=== PATIENT | female | born 1985 ===

== ENCOUNTER 2018-02-20 16:07 | Emergency (ER) | payer MEDICAID ==
[2018-02-20 16:07] VITALS: BMI 33.3
[2018-02-20] MEDS ORDERED: Sodium Chloride 0.9% 1,000 ML IV STA (17:08)
--- NOTE | 2018-02-20 17:12 | ED PDOC ---
Arrival/HPI - General Chief Complaint: Female Genitourinary Time Seen by Provider: 02/20/18 17:07 Historian: Patient - History of Present Illness Narrative History of Present Illness (Text): 02/20/18 17:08 32yr old female , Presents today with vaginal bleeding. Patient states she' s been having brown vaginal discharge for the past 3 weeks but today she developed bright red blood per vagina. Patient states she has only gone through 2 pads since this morning. Patient states today she has developed some lower abdominal cramping and low back pain. She denies urinary symptoms. Denies chest pain or shortness of breath. Denies fevers or chills. Patient states she has irregular periods and her last known menstrual cycle was in September. Patient states she has not had an ultrasound to confirm . No nausea or vomiting. No other complaints Time/Duration: Other (this morning) Symptom Onset: Gradual Quality: Cramping Severity Level: 7 Past Medical History - Provider Review Nursing Documentation Reviewed: Yes - Travel History Have you recently traveled outside [place] w/in the past 3 mons?: No - Infectious Disease Hx of Infectious Diseases: None - Tetanus Immunization Tetanus Immunization: Unknown - Past Medical History Past Medical History: No Previous - Psychiatric Hx Depression: No Hx Emotional Abuse: No Hx Physical Abuse: No Hx Substance Use: No - Past Surgical History Past Surgical History: No Previous - Surgical History Hx Section: Yes - Suicidal Assessment Feels Threatened In Home Enviroment: No Family/Social History - Physician Review Nursing Documentation Reviewed: Yes Family/Social History: Unknown Family HX Smoking Status: Former Smoker Hx Alcohol Use: No Hx Substance Use: No Hx Substance Use Treatment: No Allergies/Home Meds Allergies/Adverse Reactions: Allergies ciprofloxacin [From Cipro] Allergy (Verified 02/20/18 16:52) SWELLING Review of Systems - Review of Systems Constitutional: absent: Fatigue, Fevers Respiratory: absent: SOB, Cough Cardiovascular: absent: Chest Pain, Palpitations Gastrointestinal: Abdominal Pain. absent: Constipation, Diarrhea, Nausea, Vomiting Genitourinary Female: Vaginal Bleeding. absent: Dysuria, Frequency, Hematuria Musculoskeletal: Back Pain. absent: Arthralgias, Neck Pain Skin: absent: Rash, Pruritis Neurological: absent: Headache, Dizziness Psychiatric: absent: Anxiety, Depression Physical Exam Vital Signs Reviewed: Yes Vital Signs Temp Pulse Resp BP Pulse Ox 02/20/18 16:07 98.6 F 94 H 18 124/68 99 Temperature: Afebrile Blood Pressure: Normal Pulse: Regular Respiratory Rate: Normal Appearance: Positive for: Well-Appearing, Non-Toxic, Comfortable Pain Distress: None Mental Status: Positive for: Alert and Oriented X 3 - Systems Exam Head: Present: Atraumatic Mouth: Present: Moist Mucous Membranes Neck: Present: Normal Range of Motion Cardiovascular: Present: Regular Rate and Rhythm, Normal S1, S2. No: Murmurs Abdomen: No: Tenderness (+ lower pelvic tenderness and suprapubic tenderness), Distention, Peritoneal Signs, Rebound, Guarding Genitourinary/Pelvic Exam: Present: Normal External Genitalia, Vaginal Bleeding (+ minimal amount of vaginal bleeding noted; ), Cervical os Closed, Other ( chaparoned by Eveline MCCAIN). No: Vaginal Discharge, Adenexal Tenderness Back: Present: Normal Inspection. No: CVA Tenderness, Midline Tenderness, Paraspinal Tenderness Upper Extremity: Present: Normal Inspection Lower Extremity: Present: Normal Inspection Neurological: Present: GCS=15, Speech Normal Skin: Present: Warm, Dry, Normal Color. No: Rashes Psychiatric: Present: Alert, Oriented x 3 Medical Decision Making ED Course and Treatment: 02/20/18 17:11 Patient is nontoxic well appearing in no distress. vital signs are stable. CBC: wbc; 15.8 CMP: wnl Beta hC TYPE AND SCREEN: o+ Urinalysis: + blood, + leukocytes, 2-5wbcs Ultrasound: FINDINGS: Fetus: There is a single living intrauterine gestation in variable presentation. There is a heart rate of 158 beats per minute. Placenta: Placenta is anterior. There is no previa.. Amniotic fluid: Amnionic fluid volume appears normal.Amniotic fluid index measures 8.97 cm Anatomy: Early gestational age limits evaluation of anatomy BIOMETRICS Gestational age: 16 weeks 0 days DONALD: 08/07/18 EFW: 142 g BPD: 3.19 cm, 16 weeks 0 days HC: 12.14 cm, 16 weeks 0 days AC: 9.89 cm, 16 weeks 0 days FL: 2.04 cm, 16 weeks 1 day MATERNAL: Cervix: Cervix measures approximately 3 cm in length Ovaries: Ovaries are unremarkable. There is intraovarian blood flow. There is a corpus luteum on the right. IMPRESSION: 16 weeks 0 day single living intrauterine gestation, estimated date of delivery 08/07/18, no previa Discussed all the results the patient. pt was advised to continue vitamins. Pt states she is currently taking vitamins. pt was advised to take tylenol for pain and macrobid for UTI. advised f/u with the tree doctor within the next 2 days. advised immediate return if symptoms worsen,persist or if new symptoms develop; continued pain, heavy bleeding, dizziness or weakness or if any other concerning symptoms develop. Patient verbalizes understanding of discharge instructions and need for immediate followup. all aspects of this case were discussed the attending of record. Impression: Threatened , UTI Tylenol every 4 hours as needed for pain Increase fluids Macrobid; 1 tablet twice daily x 10 days. Followup with the needle straightener within the next 2 days Return immediately if symptoms worsen persist or if new symptoms develop: High fevers, heavy bleeding, severe abdominal pain, vomiting, diarrhea, dizziness or weakness or any other concerning symptoms develop. - Lab Interpretations Lab Results: 02/20/18 17:40 02/20/18 17:40 Lab Results 02/20/18 17:40: WBC 15.8 H D, RBC 3.96, Hgb 11.3 L, Hct 33.2 L, MCV 83.8, MCH 28.5, MCHC 34.0, RDW 12.9, Plt Count 346, MPV 9.7, Gran % 79.7 H, Lymph % (Auto ) 13.7 L, [place] % (Auto) 5.6, Eos % (Auto) 0.9 L, Baso % (Auto) 0.1, Gran # 12.58 H, Lymph # (Auto) 2.2, [place] # (Auto) 0.9 H, Eos # (Auto) 0.2, Baso # (Auto ) 0.02 02/20/18 17:40: Beta HCG, Quant 66846.00 H 02/20/18 17:40: Sodium 139, Potassium 4.0, Chloride 106, Carbon Dioxide 20 L, Anion Gap 17, BUN 8, Creatinine 0.4 L, Est GFR ( Amer) > 60, Est GFR (Non -Af Amer) > 60, Random Glucose 86, Calcium 9.2, Total Bilirubin 0.3, AST 18, ALT 16, Alkaline Phosphatase 73, Total Protein 7.4, Albumin 4.1, Globulin 3.3, Albumin/Globulin Ratio 1.2 02/20/18 17:29: Urine Color Yellow, Urine Appearance Turbid, Urine pH 6.0, Ur Specific [place] 1.025, Urine Protein Trace H, Urine Glucose (UA) Negative, Urine Ketones Trace H, Urine Blood Large H, Urine Nitrate Negative, Urine Bilirubin Negative, Urine Urobilinogen 0.2, Ur Leukocyte Esterase Small H, Urine RBC 10 - 15, Urine WBC 2 - 5, Ur Epithelial Cells 1 - 3, Calcium Oxalate Crystal Few, Urine Bacteria Few 02/20/18 17:10: Blood Type O POSITIVE, Antibody Screen Negative, BBK History Checked No verified bt - RAD Interpretation Radiology Orders: 02/20/18 17:31 AGE [US] Stat - Medication Orders Current Medication Orders: Discontinued Medications Sodium Chloride (Sodium Chloride 0.9%) 1,000 mls @ 999 mls/hr IV .Q1H1M STA Stop: 02/20/18 18:08 Last Admin: 02/20/18 17:35 Dose: 999 mls/hr eMAR Start Stop Document 02/20/18 17:35 SF (Rec: 02/20/18 17:35 [id number]) Intravenous Solution Start Date 02/20/18 Start Time 17:35 End Date 02/20/18 End time 18:36 Total Infusion Time 61 Disposition/Present on Arrival - Present on Arrival Any Indicators Present on Arrival: No History of DVT/PE: No History of Uncontrolled Diabetes: No Urinary Catheter: No History of Decub. Ulcer: No History Surgical Site Infection Following: None - Disposition Have Diagnosis and Disposition been Completed?: Yes Diagnosis: Threatened , Urinary tract infection Disposition: HOME/ ROUTINE Disposition Time: 19:26 Patient Plan: Discharge Condition: GOOD Discharge Instructions (ExitCare): Threatened Miscarriage (DC), Urinary Tract Infections in Adults Additional Instructions: Tylenol every 4 hours as needed for pain Increase fluids Macrobid; 1 tablet twice daily x 10 days. Followup with the needle straightener within the next 2 days Return immediately if symptoms worsen persist or if new symptoms develop: High fevers, heavy bleeding, severe abdominal pain, vomiting, diarrhea, dizziness or weakness or any other concerning symptoms develop. Prescriptions: Nitrofurantoin Macrocrystals [Macrobid] 100 mg PO BID #20 cap Referrals: Trisha Villafuerte MD [Primary Care Provider] - Follow up with primary Fabi,Lidia A, MD [Staff Provider] - Follow up with primary Luis Malloy MD [Staff Provider] - Follow up with primary Ramy Lovett DO [Staff Provider] - Follow up with [facility] [Outside] - Follow up with primary Forms: [employer] ([place]uan), WORK NOTE
[2018-02-20 17:38] LABS: URINE BILIRUBIN NEGATIVE (NEGATIVE); URINE BLOOD LARGE (NEGATIVE); URINE GLUCOSE (UA) NEGATIVE (NEGATIVE); URINE LEUKOCYTE ESTERASE SMALL Leu/uL (NEGATIVE); URINE PROTEIN TRACE mg/dL (<30 mg/dL); URINE UROBILINOGEN 0.2 E.U./dL (<1 E.U./dL)
[2018-02-20 17:39] LABS: URINE APPEARANCE TURBID (CLEAR); URINE COLOR YELLOW (YELLOW)
[2018-02-20 17:43] LABS: URINE BACTERIA FEW (NEG); URINE CALCIUM OXALATE CRYSTALS FEW /hpf
[2018-02-20 17:47] LABS: BASO # 0.02 K/mm3 (0.0-2.0); BASO % 0.1 % (0.0-3.0); EOS # 0.2 (0.0-0.7); EOS % 0.9 % (1.5-5.0); GRAN # 12.58 (1.4-6.5); GRAN % 79.7 % (50.0-68.0); HEMOGLOBIN 11.3 g/dL (12.0-16.0); LYMPH # 2.2 (1.2-3.4); LYMPH % 13.7 % (22.0-35.0); MEAN CELL VOLUME 83.8 fl (80.0-105.0); MEAN CORPUSCULAR HEMOGLOBIN 28.5 pg (25.0-35.0); MEAN PLATELET VOLUME 9.7 fl (7.0-11.0); MONO # 0.9 (0.1-0.6); MONO % 5.6 % (1.0-6.0); RBC 3.96 10^6/uL (3.5-6.1); RED CELL DISTRIBUTION WIDTH 12.9 % (11.5-14.5); WHITE BLOOD COUNT 15.8 10^3/ul (4.5-11.0)
[2018-02-20 17:56] LABS: ALB/GLOB RATIO 1.2 (1.1-1.8); ALBUMIN 4.1 g/dL (3.0-4.8); ALT/SGPT 16 U/L (7-56); AST/SGOT 18 U/L (14-36); BLOOD UREA NITROGEN 8 mg/dL (7-21); CALCIUM 9.2 mg/dL (8.4-10.5); GFR NON-AFRICAN AMERICAN > 60
--- NOTE | 2018-02-20 18:58 | US ---
EXAM: US After First Trimester, Transabdominal EXAM DATE/TIME: 02/20/2018 5:31 PM CLINICAL HISTORY: 32 years old, female; Pain; complicated by abdominal or pelvic pain; Lower; Second trimester; LMP unknown; ; Additional info: Pain/bleeding - ; spotting started today TECHNIQUE: Real-time transabdominal obstetrical ultrasound of the maternal pelvis and a second or third trimester with image documentation. COMPARISON: There are no prior studies for comparison. FINDINGS: Fetus: There is a single living intrauterine gestation in variable presentation. There is a heart rate of 158 beats per minute. Placenta: Placenta is anterior. There is no previa.. Amniotic fluid: Amnionic fluid volume appears normal.Amniotic fluid index measures 8.97 cm Anatomy: Early gestational age limits evaluation of anatomy BIOMETRICS Gestational age: 16 weeks 0 days DONALD: 08/07/18 EFW: 142 g BPD: 3.19 cm, 16 weeks 0 days HC: 12.14 cm, 16 weeks 0 days AC: 9.89 cm, 16 weeks 0 days FL: 2.04 cm, 16 weeks 1 day MATERNAL: Cervix: Cervix measures approximately 3 cm in length Ovaries: Ovaries are unremarkable. There is intraovarian blood flow. There is a corpus luteum on the right. IMPRESSION: 16 weeks 0 day single living intrauterine gestation, estimated date of delivery 08/07/18, no previa
[2018-02-20 19:39] VITALS: RESP 17; O2SAT 100
[2018-02-20 19:46] VITALS: BP 124/77; PULSE 84
[2018-02-20 19:58] VITALS: TEMP 98.2
== END 2018-02-20 19:58 | disposition home or self-care (01) ==
LOC: ED 16:07
DX: O20.0 Threatened abortion (principal); O23.42 Unspecified infection of urinary tract in pregnancy, second trimester; Z3A.16 16 weeks gestation of pregnancy; Z87.891 Personal history of nicotine dependence
CPT/HCPCS: 76815; 80053; 81001; 84702; 85025; 86850; 86900; 87086; 96360; 99285; J7030

== ENCOUNTER 2018-06-22 20:08 | Emergency (ER) | payer MEDICAID ==
[2018-06-22 20:08] VITALS: BMI 33.3
[2018-06-22 20:47] VITALS: RESP 16; TEMP 98.5; O2SAT 99
--- NOTE | 2018-06-22 20:57 | ED PDOC ---
Arrival/HPI - General Chief Complaint: Eye Problem Time Seen by Provider: 06/22/18 20:45 Historian: Patient - History of Present Illness Narrative History of Present Illness (Text): 06/22/18 20:57 33 y/o female, no significant pmh, nkda, c/o left throat and ear pain x 1 week with eye discharges started today. Lt. ear pain, lt. sided throat pain, no fever or chills, started to have yellow color discharge on the both eyes today, no change in vision, no eye pain, no fever or chills, no rash, no other medical or psychological complaints. Past Medical History - Provider Review Nursing Documentation Reviewed: Yes - Infectious Disease Hx of Infectious Diseases: None - Tetanus Immunization Tetanus Immunization: Unknown - Past Medical History Past Medical History: No Previous - Psychiatric Hx Depression: No Hx Emotional Abuse: No Hx Physical Abuse: No Hx Substance Use: No - Past Surgical History Past Surgical History: No Previous - Surgical History Hx Section: Yes - Anesthesia Hx Anesthesia: Yes Hx Anesthesia Reactions: No Hx Malignant Hyperthermia: No - Suicidal Assessment Feels Threatened In Home Enviroment: No Family/Social History - Physician Review Nursing Documentation Reviewed: Yes Family/Social History: Unknown Family HX Smoking Status: Former Smoker Hx Alcohol Use: No Hx Substance Use: No Hx Substance Use Treatment: No Allergies/Home Meds Allergies/Adverse Reactions: Allergies ciprofloxacin [From Cipro] Allergy (Verified 06/22/18 20:43) SWELLING Review of Systems - Review of Systems Constitutional: absent: Fatigue, Fevers Eyes: Other (eye discharge). absent: Vision Changes ENT: Sore Throat, Other (ear pain). absent: Hearing Changes, Tinnitus, TMJ Pain, Rhinorrhea Respiratory: absent: SOB, Cough Cardiovascular: absent: Chest Pain Gastrointestinal: absent: Abdominal Pain, Diarrhea, Nausea, Vomiting Musculoskeletal: absent: Arthralgias, Back Pain Skin: absent: Rash, Pruritis Neurological: absent: Headache Psychiatric: absent: Anxiety, Depression, Suicidal Ideation Physical Exam Vital Signs Reviewed: Yes Vital Signs Temp Pulse Resp BP Pulse Ox 06/22/18 20:45 98.5 F 83 16 158/102 H 99 Temperature: Afebrile Blood Pressure: Hypertensive Pulse: Regular Respiratory Rate: Normal Appearance: Positive for: Well-Appearing, Non-Toxic, Comfortable Pain Distress: Mild Mental Status: Positive for: Alert and Oriented X 3 - Systems Exam Head: Present: Atraumatic, Normocephalic Pupils: Present: PERRL Extroacular Muscles: Present: EOMI Conjunctiva: Present: Other (bilateral conjunctivitis. ) Ears: Present: Other (Ears: lt TM erythematous and intact, rt. TM patricia color and intact, bilateral auditory canals non-erythematous, no mastoid tenderness. ) Mouth: Present: Moist Mucous Membranes, Normal Lips, Normal Tounge, Normal Teeth Pharnyx: Present: Normal. No: ERYTHEMA, EXUDATE, TONSILS ENLARGED, Peritonsilar Swelling, Uvular Deviation, Muffled/Hoarse Voice, [place], Soft Palate/Uvular Edema Nose (External): Present: Atraumatic. No: Abrasion, Contusion, Laceration, Lesions Nose (Internal): Present: Normal Inspection, No Active Bleeding. No: Clear Mucous, Rhinorrhea, Septal Deviation, Septal Hematoma, Epistaxis Neck: Present: Normal Range of Motion, Lymphadenopathy (+lt. anterior cervical lymphenapathy), Trachea Midline. No: Meningeal Signs, MIDLINE TENDERNESS, Paraspinal Tenderness Respiratory/Chest: Present: Clear to Auscultation, Good Air Exchange. No: Respiratory Distress, Accessory Muscle Use, Wheezes, Decreased Breath Sounds, Rales, Retracting, Rhonchi, Tachypneic, Tender to Palpation Cardiovascular: Present: Regular Rate and Rhythm, Normal S1, S2. No: Murmurs Abdomen: No: Tenderness, Distention, Peritoneal Signs Back: Present: Normal Inspection Upper Extremity: Present: Normal Inspection. No: Cyanosis, Edema Lower Extremity: Present: Normal Inspection. No: Edema Neurological: Present: GCS=15, CN II-XII Intact, Speech Normal, Motor Func Grossly Intact, Gait Normal, Memory Normal Skin: Present: Warm, Dry, Normal Color. No: Rashes Psychiatric: Present: Alert, Oriented x 3, Normal Insight, Normal Concentration Medical Decision Making ED Course and Treatment: 06/22/18 21:01 -urine hcg 06/22/18 21:27 -Urine hcg is negative. -Discharge home with augmentin, motrin, erythromycin oinment, avoid rubbing or touching the eyes, follow up with your own pmd and ENT/opthalmologist within 2 days, return to the ER for any new or worsening signs or symptoms. - PA / FACULTY INSTRUCTOR / Resident Statement MD/ has reviewed & agrees with the documentation as recorded. Disposition/Present on Arrival - Present on Arrival Any Indicators Present on Arrival: No History of DVT/PE: No History of Uncontrolled Diabetes: No Urinary Catheter: No History of Decub. Ulcer: No History Surgical Site Infection Following: None - Disposition Have Diagnosis and Disposition been Completed?: Yes Diagnosis: Conjunctivitis, Otitis media, Cervical lymphadenopathy Disposition: HOME/ ROUTINE Disposition Time: 21:28 Patient Plan: Discharge Condition: GOOD Additional Instructions: -Discharge home with augmentin, motrin, erythromycin oinment, avoid rubbing or touching the eyes, follow up with your own pmd and ENT/opthalmologist within 2 days, return to the ER for any new or worsening signs or symptoms. Prescriptions: Amoxicillin/Clavulanate [Augmentin 875 MG-125 MG] 1 tab PO BID #20 tab Erythromycin 0.5% [Erythromycin] 0.5 in BOTHEYES Q4 #1 tube Ibuprofen [Motrin Tab] 600 mg PO QID PRN #30 tab PRN Reason: Other Referrals: Manjinder Mazairegos DO [Doctor Osteopathy] - Follow up with primary Wing Jose MD [Staff Provider] - Follow up with primary [facility] [place] [Outside] - Follow up with primary Forms: [employer] ([place]an), WORK NOTE
[2018-06-22 21:21] VITALS: BP 145/92; PULSE 78
== END 2018-06-22 21:52 | disposition home or self-care (01) ==
LOC: ED 20:08
DX: H10.9 Unspecified conjunctivitis (principal); H66.92 Otitis media, unspecified, left ear; Z87.891 Personal history of nicotine dependence; R59.1 Generalized enlarged lymph nodes